=== PATIENT | female | born 1970 | race Caucasian/White ===

== ENCOUNTER 2016-08-03 11:15 | Inpatient (IN) | payer BC, MEDICARE ==
[~2016-08-03 11:15] MED LIST: CIPRO500 MG PO; CLONAZEPAM1 M1 PO; CLONAZEPAM1 MG PO; CLONAZEPAM2 MG PO; CYMBALTA30 MG PO; CYMBALTA60 MG PO; GABAPENTIN100 MG PO; GABAPENTIN300 MG PO; IBUPROFEN400 MG PO; KEPPRA500 M1 PO; KEPPRA500 M2 PO; LAMICTAL25 M1 PO; LAMICTAL25 MG PO; LISINOPRIL5 MG PO; MOTRIN200 MG/TA1 PO; MULTIVITAMIN W1 EAC2 PO; NEURONTIN300 MG PO; PERCOCET 5/3251 TAB PO; TOPAMAX25 M PO; TYLENOL PM EX-1 EAC1 PO; TYLENOL PM PO; TYLENOL500 MG PO; XANAX0.5 MG PO; ZOFRAN ODT4 MG/UDTAB PO; ZOLOFT100 MG PO; lisinopril PO
[2016-08-03] MEDS ORDERED: TRAZODONE HCL100 M1 PO (11:23)
[2016-08-03] MEDS ORDERED: ATORVASTATIN CA20 M1 PO (11:24)
[2016-08-03] MEDS ORDERED: SEROQUEL XR400 M2 PO (11:24)
[2016-08-03] MEDS ORDERED: KLONOPIN2 M1 PO (11:24)
[2016-08-03] MEDS ORDERED: LUNESTA3 M1 PO (11:25)
[2016-08-03] MEDS ORDERED: NEURONTIN300 M1 PO ×3 (11:25→11:41)
[2016-08-03] MEDS ORDERED: SEROQUEL200 M2 PO (11:43)
[2016-08-03] MEDS ORDERED: REQUIP4 M1 PO ×2 (11:44)
[2016-08-03] MEDS ORDERED: BUSPIRONE HCL10 M2 PO (11:45)
[2016-08-03 11:48] LABS: BASO % 0.6 % (0-2); EOS % 1.7 % (0-7); EOSINOPHIL ABSOLUTE COUNT 0.1 tho/cmm (0.0-0.7); HCT-HEMATOCRIT 39.2 % (34.0-49.0); IMMATURE GRANULOCYTES ABSOLUTE 0.02 tho/cmm (0-0.03); IMMATURE GRANULOCYTES PERCENT 0.3 % (0-0.3); LYMPH % 20.1 % (20-45); LYMPH ABSOLUTE COUNT 1.3 tho/cmm (0.8-4.5); MCH (MEAN CORPUSCULAR HGB) 28.9 pg (28.0-32.0); MCHC MEAN CORPUSCULAR HGB CONC 33.2 % (32.0-36.0); MCV (MEAN CELL VOLUME) 87.1 fl (82.0-96.0); MEAN PLATELET VOLUME 10.3 cmc (9.4-12.4); MONOCYTE ABSOLUTE COUNT 0.5 tho/cmm (0.0-1.2); NEUTROPHIL ABSOLUTE COUNT 4.5 tho/cmm (1.6-8.0); NEUTROPHIL-AUTOMATED 4.5 tho/cmm (1.6-8.0); NEUTROPHILS % 70.3 % (40-80); PLATELET COUNT 282 tho/cmm (150-450); RED CELL DISTRIBUTION WIDTH 13.2 % (12.4-16.4); WHITE BLOOD COUNT 6.4 tho/cmm (4.0-10.0)
[2016-08-03 11:56] LABS: PROTHROMBIN TIME 11.2 SECONDS (9.0-13.6)
[2016-08-03] MEDS ORDERED: TYLENOL PM EX-1 EAC4 PO (12:00)
[2016-08-03 12:45] LABS: BASO % 0.8 % (0-2); BASO ABSOLUTE COUNT 0.1 tho/cmm (0.0-0.2); EOS % 1.4 % (0-7); EOSINOPHIL ABSOLUTE COUNT 0.1 tho/cmm (0.0-0.7); HCT-HEMATOCRIT 38.4 % (34.0-49.0); HGB-HEMOGLOBIN 12.8 gm/dl (12.0-15.5); IMMATURE GRANULOCYTES ABSOLUTE 0.02 tho/cmm (0-0.03); IMMATURE GRANULOCYTES PERCENT 0.3 % (0-0.3); LYMPH ABSOLUTE COUNT 1.4 tho/cmm (0.8-4.5); MCH (MEAN CORPUSCULAR HGB) 29.2 pg (28.0-32.0); MCHC MEAN CORPUSCULAR HGB CONC 33.3 % (32.0-36.0); MCV (MEAN CELL VOLUME) 87.7 fl (82.0-96.0); MEAN PLATELET VOLUME 9.7 cmc (9.4-12.4); MONO % 6.2 % (0-12); MONOCYTE ABSOLUTE COUNT 0.4 tho/cmm (0.0-1.2); NEUTROPHIL ABSOLUTE COUNT 4.7 tho/cmm (1.6-8.0); NEUTROPHIL-AUTOMATED 4.7 tho/cmm (1.6-8.0); NEUTROPHILS % 70.3 % (40-80); PLATELET COUNT 262 tho/cmm (150-450); RED BLOOD COUNT 4.38 mil/cmm (4.00-5.20); WHITE BLOOD COUNT 6.6 tho/cmm (4.0-10.0)
[2016-08-03 12:46] LABS: PROTHROMBIN TIME 11.7 SECONDS (9.0-13.6)
[2016-08-03 12:58] LABS: ALB/GLOB RATIO 1.1 (0.8-2.0); ALKALINE PHOSPHATASE 108 U/L (33-138); ALT/SGPT 22 U/L (12-78); ANION GAP 14 mmol/L (0-20); AST/SGOT 14 U/L (10-40); BILIRUBIN,TOTAL 0.2 mg/dl (0-1.5); BLOOD UREA NITROGEN 10 mg/dl (6-24); CALCIUM 8.4 mg/dl (8.5-10.5); CARBON DIOXIDE-VENOUS 26 mmol/L (22-32); CHLORIDE 103 mmol/l (96-110); CREATININE 0.84 mg/dl (0.50-1.10); GLUCOSE 103 mg/dL (70-110); POTASSIUM 4.1 mmol/L (3.7-5.1); SODIUM 139 mmol/L (135-145); eGFR VALUE FOR BLACK >90 mL/Min
[2016-08-03 13:13] LABS: ESR-ERYTHROCYTE SED RATE 10 mm/hr (0-20)
[2016-08-03 13:14] LABS: ESR-ERYTHROCYTE SED RATE 10 mm/hr (0-20)
[2016-08-03] MEDS ORDERED: BYSTOLIC10 M1 PO (15:56)
[2016-08-03] MEDS ORDERED: LABETALOL HCL100 M1 PO (15:57)
[2016-08-03] MEDS ORDERED: LAMICTAL200 M2 PO (15:58)
[2016-08-03] MEDS ORDERED: XANAX1 M1 PO (15:59)
[2016-08-04 05:59] LABS: BLOOD UREA NITROGEN 17 mg/dl (6-24); CALCIUM 8.5 mg/dl (8.5-10.5); CARBON DIOXIDE-VENOUS 30 mmol/L (22-32); CHLORIDE 99 mmol/l (96-110); GLUCOSE 119 mg/dL (70-110); SODIUM 136 mmol/L (135-145)
[2016-08-04 06:00] LABS: ANION GAP 11 mmol/L (0-20); CREATININE 1.35 mg/dl (0.50-1.10); POTASSIUM 3.7 mmol/L (3.7-5.1); eGFR VALUE FOR BLACK 55 mL/Min
[2016-08-05 05:00] LABS: ANION GAP 11 mmol/L (0-20); BLOOD UREA NITROGEN 17 mg/dl (6-24); CALCIUM 8.2 mg/dl (8.5-10.5); CARBON DIOXIDE-VENOUS 31 mmol/L (22-32); CHLORIDE 101 mmol/l (96-110); CREATININE 1.05 mg/dl (0.50-1.10); GLUCOSE 94 mg/dL (70-110); SODIUM 138 mmol/L (135-145); eGFR VALUE FOR BLACK 75 mL/Min
[2016-08-05 05:22] LABS: POTASSIUM 4.5 mmol/L (3.7-5.1)
[2016-08-05] MEDS ORDERED: PRINIVIL5 M1 PO (17:31)
== END 2016-08-05 18:17 | DRG 287 ==
LOC: EDMED 11:15 → EMR2 16:06 → 5WE 17:19
PROVIDERS: Emergency Medicine; Family Medicine; ADMIT Hospitalist
PROC: 4A023N7 Measurement of Cardiac Sampling and Pressure, Left Heart, Percutaneous Approach (ICD-10-PCS; principal; 2016-08-05)
PROC: B2111ZZ Fluoroscopy of Multiple Coronary Arteries using Low Osmolar Contrast (ICD-10-PCS; 2016-08-05)
DX: I42.9 Cardiomyopathy, unspecified (principal); Z68.41 Body mass index [BMI] 40.0-44.9, adult; R07.9 Chest pain, unspecified; I16.0 Hypertensive urgency; Z91.14 Patient's other noncompliance with medication regimen; F31.9 Bipolar disorder, unspecified; G25.81 Restless legs syndrome; R06.02 Shortness of breath; G47.00 Insomnia, unspecified; R09.89 Other specified symptoms and signs involving the circulatory and respiratory systems; Z88.0 Allergy status to penicillin; Z88.2 Allergy status to sulfonamides; E78.5 Hyperlipidemia, unspecified; Z87.898 Personal history of other specified conditions; E66.01 Morbid (severe) obesity due to excess calories
CPT/HCPCS: C1769; C1887; C1894; J1644; J1940; J2250; J2270; J2405; J3010; J7030; Q9967

== ENCOUNTER 2016-08-28 10:29 | Observation (INO) | payer BC, MEDICARE ==
[~2016-08-28 10:29] MED LIST changes: +ATORVASTATIN CA20 M1 PO; +BUSPIRONE HCL10 M2 PO; +BYSTOLIC10 M1 PO; +KLONOPIN2 M1 PO; +LABETALOL HCL100 M1 PO; +LAMICTAL200 M2 PO; +LUNESTA3 M1 PO; +NEURONTIN300 M1 PO; +PRINIVIL5 M1 PO; +REQUIP4 M1 PO; +SEROQUEL XR400 M2 PO; +SEROQUEL200 M2 PO; +TRAZODONE HCL100 M1 PO; +TYLENOL PM EX-1 EAC4 PO; +XANAX1 M1 PO
[2016-08-28] MEDS ORDERED: SEROQUEL200 M2 PO (10:48)
[2016-08-28] MEDS ORDERED: QUETIAPINE FUM200 M1 PO (10:57)
[2016-08-28 11:43] LABS: BASO % 0.6 % (0-2); EOSINOPHIL ABSOLUTE COUNT 0.1 tho/cmm (0.0-0.7); HCT-HEMATOCRIT 40.3 % (34.0-49.0); HGB-HEMOGLOBIN 13.7 gm/dl (12.0-15.5); IMMATURE GRANULOCYTES ABSOLUTE 0.03 tho/cmm (0-0.03); IMMATURE GRANULOCYTES PERCENT 0.6 % (0-0.3); LYMPH ABSOLUTE COUNT 1.6 tho/cmm (0.8-4.5); MCH (MEAN CORPUSCULAR HGB) 29.1 pg (28.0-32.0); MCV (MEAN CELL VOLUME) 85.6 fl (82.0-96.0); MEAN PLATELET VOLUME 9.4 cmc (9.4-12.4); MONO % 10.8 % (0-12); MONOCYTE ABSOLUTE COUNT 0.6 tho/cmm (0.0-1.2); NEUTROPHIL ABSOLUTE COUNT 3.1 tho/cmm (1.6-8.0); NEUTROPHIL-AUTOMATED 3.1 tho/cmm (1.6-8.0); PLATELET COUNT 253 tho/cmm (150-450); RED BLOOD COUNT 4.71 mil/cmm (4.00-5.20); WHITE BLOOD COUNT 5.4 tho/cmm (4.0-10.0)
[2016-08-28 11:52] LABS: URINE BILIRUBIN NEGATIVE (NEG); URINE BLOOD NEGATIVE (NEG); URINE GLUCOSE (UA) NEGATIVE (NEG); URINE KETONE NEGATIVE (NEG); URINE LEUKOCYTE ESTERASE NEGATIVE (NEG); URINE NITRITE NEGATIVE (NEG); URINE PROTEIN NEGATIVE (NEG)
[2016-08-28 11:54] LABS: URINE APPEARANCE CLEAR; URINE COLOR PALE YELLOW
[2016-08-28 11:59] LABS: URINE BACTERIA 3+; URINE EPITHELIAL CELLS 0-2 /[HPF] (0-10); URINE RBC 0 /[HPF] (0-5); URINE WBC 0 /[HPF] (0-5)
[2016-08-28 12:03] LABS: ANION GAP 13 mmol/L (0-20); BLOOD UREA NITROGEN 15 mg/dl (6-24); CALCIUM 9.3 mg/dl (8.5-10.5); CARBON DIOXIDE-VENOUS 26 mmol/L (22-32); CHLORIDE 103 mmol/l (96-110); CREATININE 0.77 mg/dl (0.50-1.10); GLUCOSE 93 mg/dL (70-110); POTASSIUM 4.2 mmol/L (3.7-5.1); SODIUM 138 mmol/L (135-145); eGFR VALUE FOR BLACK >90 mL/Min
[2016-08-29 05:59] LABS: BLOOD UREA NITROGEN 22 mg/dl (6-24); CALCIUM 8.8 mg/dl (8.5-10.5); CHLORIDE 101 mmol/l (96-110); CREATININE 1.12 mg/dl (0.50-1.10); GLUCOSE 96 mg/dL (70-110); POTASSIUM 3.9 mmol/L (3.7-5.1); SODIUM 136 mmol/L (135-145); eGFR VALUE FOR BLACK 69 mL/Min
[2016-08-29 06:13] LABS: ANION GAP 14 mmol/L (0-20); CARBON DIOXIDE-VENOUS 25 mmol/L (22-32)
[2016-08-29 12:04] LABS: C-REACTIVE PROTEIN 0.5 mg/dl (0-0.9)
[2016-08-29 12:38] LABS: TSH-THYROID STIMULATING HORM. 2.4 uIU/ml (0.40-3.80)
[2016-08-30 05:45] LABS: BASO % 0.5 % (0-2); EOS % 2.8 % (0-7); EOSINOPHIL ABSOLUTE COUNT 0.2 tho/cmm (0.0-0.7); HCT-HEMATOCRIT 35.7 % (34.0-49.0); HGB-HEMOGLOBIN 11.4 gm/dl (12.0-15.5); IMMATURE GRANULOCYTES ABSOLUTE 0.02 tho/cmm (0-0.03); IMMATURE GRANULOCYTES PERCENT 0.3 % (0-0.3); LYMPH % 22.9 % (20-45); LYMPH ABSOLUTE COUNT 1.3 tho/cmm (0.8-4.5); MCH (MEAN CORPUSCULAR HGB) 28.4 pg (28.0-32.0); MCV (MEAN CELL VOLUME) 88.8 fl (82.0-96.0); MEAN PLATELET VOLUME 9.1 cmc (9.4-12.4); MONO % 8.7 % (0-12); MONOCYTE ABSOLUTE COUNT 0.5 tho/cmm (0.0-1.2); NEUTROPHIL ABSOLUTE COUNT 3.7 tho/cmm (1.6-8.0); NEUTROPHIL-AUTOMATED 3.7 tho/cmm (1.6-8.0); NEUTROPHILS % 64.8 % (40-80); PLATELET COUNT 202 tho/cmm (150-450); RED BLOOD COUNT 4.02 mil/cmm (4.00-5.20); RED CELL DISTRIBUTION WIDTH 13.5 % (12.4-16.4); WHITE BLOOD COUNT 5.8 tho/cmm (4.0-10.0)
[2016-08-30 05:49] LABS: MCHC MEAN CORPUSCULAR HGB CONC 31.9 % (32.0-36.0)
[2016-08-30 05:59] LABS: ALB/GLOB RATIO 1.2 (0.8-2.0); ALBUMIN 3.6 g/dl (3.5-5.0); ALKALINE PHOSPHATASE 89 U/L (33-138); ALT/SGPT 22 U/L (12-78); ANION GAP 11 mmol/L (0-20); AST/SGOT 14 U/L (10-40); BILIRUBIN,TOTAL 0.2 mg/dl (0-1.5); BLOOD UREA NITROGEN 23 mg/dl (6-24); CALCIUM 8.5 mg/dl (8.5-10.5); CARBON DIOXIDE-VENOUS 28 mmol/L (22-32); CHLORIDE 103 mmol/l (96-110); GLUCOSE 113 mg/dL (70-110); SODIUM 138 mmol/L (135-145); eGFR VALUE FOR BLACK 44 mL/Min
[2016-08-30 06:08] LABS: CREATININE 1.62 mg/dl (0.50-1.10)
[2016-08-30] MEDS ORDERED: NORCO 5-325 TA1 EACH PO (12:12)
[2016-08-30] MEDS ORDERED: MIRALAX17 G2 PO (12:12)
== END 2016-08-30 12:25 ==
LOC: EDMED 10:29 → EMR2 14:05 → CAR1 14:36
PROVIDERS: Emergency Medicine; Internal Medicine; ADMIT Family Medicine
DX: I16.0 Hypertensive urgency (principal); N17.9 Acute kidney failure, unspecified; F32.9 Major depressive disorder, single episode, unspecified; G25.81 Restless legs syndrome; G47.00 Insomnia, unspecified; M54.5 Low back pain; G89.29 Other chronic pain; F41.9 Anxiety disorder, unspecified; G47.30 Sleep apnea, unspecified; I27.2 Other secondary pulmonary hypertension; I51.7 Cardiomegaly; E66.9 Obesity, unspecified; Z68.41 Body mass index [BMI] 40.0-44.9, adult; Z88.0 Allergy status to penicillin; Z88.1 Allergy status to other antibiotic agents; Z88.2 Allergy status to sulfonamides; Z87.442 Personal history of urinary calculi; Z90.710 Acquired absence of both cervix and uterus; Z98.890 Other specified postprocedural states
CPT/HCPCS: G0378